=== PATIENT | female | born 1980 | race Caucasian/White ===

== ENCOUNTER → 2020-09-28 | Outpatient (CLI) | payer BC ==
[2020-09-28 09:07] LABS: EOS # 0.3 (0.04-0.40); EOS % 6.3 % (1.0-5.0); HEMATOCRIT 39.4 % (37.0-47.0); HEMOGLOBIN 12.2 g/dL (12.5-16.0); LYMPH# 1.5 (1.50-4.00); MEAN CELL VOLUME 85 fl (78-100); MEAN CORPUSCULAR HEMOGLOBIN 26 pg (27-31); MEAN CORPUSCULAR HGB CONC 31 g/dL (33-37); MONO # 0.5 (0.20-0.80); NEU # 2.9 (1.40-6.50); PLATELET COUNT 415 K/mm3 (130-400); RED BLOOD COUNT 4.63 M/mm3 (4.10-5.30); RED CELL DISTRIBUTION WIDTH 13.3 % (11.5-14.5); WHITE BLOOD COUNT 5.3 K/mm3 (4.8-10.8)
[2020-09-28 09:17] LABS: ALBUMIN 4.4 g/dL (3.5-5.0); POTASSIUM 4.5 mmol/L (3.5-5.1)
[2020-09-28 09:18] LABS: CALCIUM 9.4 mg/dL (8.3-10.5)
[2020-09-28 09:19] LABS: TOTAL PROTEIN 8.2 g/dL (6.4-8.3)
[2020-09-28 09:21] LABS: TOTAL BILIRUBIN 0.4 mg/dL (0.2-1.2)
[2020-09-28 23:48] LABS: T3 TOTAL 81 ng/dL (58-159)
[2020-09-29 15:25] LABS: ANA SCREEN with REFLEX Positive (Negative)
== END ==
LOC: LAB 08:39 → RAD 08:39
PROVIDERS: Physician Assistant
DX: Z13.29 Encounter for screening for other suspected endocrine disorder (principal); Z00.00 Encounter for general adult medical examination without abnormal findings; M47.812 Spondylosis without myelopathy or radiculopathy, cervical region; M48.02 Spinal stenosis, cervical region; E78.5 Hyperlipidemia, unspecified; R59.0 Localized enlarged lymph nodes; M25.50 Pain in unspecified joint; Z86.32 Personal history of gestational diabetes; R79.89 Other specified abnormal findings of blood chemistry

== ENCOUNTER → 2020-10-05 | Outpatient (CLI) | payer BC ==
[2020-10-05 10:26] LABS: URINE APPEARANCE HAZY; URINE BILIRUBIN NEGATIVE (NEGATIVE); URINE BLOOD NEGATIVE (NEGATIVE); URINE COLOR YELLOW; URINE GLUCOSE NEGATIVE (NEGATIVE); URINE KETONE NEGATIVE (NEGATIVE); URINE LEUKOCYTE ESTERASE NEGATIVE (NEGATIVE); URINE NITRATE NEGATIVE (NEGATIVE); URINE PROTEIN(semi-quant) NEGATIVE (NEGATIVE); URINE UROBILINOGEN NORMAL (NORMAL); URINE WBC 0-1 /hpf (0-3)
== END ==
LOC: LAB 09:12
PROVIDERS: Physician Assistant
DX: Z00.00 Encounter for general adult medical examination without abnormal findings (principal); E78.5 Hyperlipidemia, unspecified; R59.1 Generalized enlarged lymph nodes

== ENCOUNTER → 2021-01-23 | Outpatient (CLI) | payer BC ==
[2021-01-23 23:50] LABS: FOLLICLE STIMULATING HORMONE 6.5 mIU/mL (()); LUTENIZING HORMONE 3.2 mIU/mL (()); PROGESTERONE 0.1 ng/mL (())
== END ==
LOC: LAB 16:23
PROVIDERS: Physician Assistant
DX: N92.6 Irregular menstruation, unspecified (principal); R79.89 Other specified abnormal findings of blood chemistry

== ENCOUNTER → 2021-10-11 | Outpatient (CLI) | payer BC ==
[2021-10-11 09:47] LABS: BASO # 0.03 K/mm3 (0.02-0.10); EOS # 0.16 K/mm3 (0.04-0.40); EOS % 2.7 % (1.0-5.0); HEMATOCRIT 37.1 % (37.0-47.0); HEMOGLOBIN 11.3 g/dL (12.5-16.0); LYMPH# 1.55 K/mm3 (1.50-4.00); MEAN CELL VOLUME 75 fl (78-100); MEAN CORPUSCULAR HEMOGLOBIN 23 pg (27-31); MEAN CORPUSCULAR HGB CONC 31 g/dL (33-37); MEAN PLATELET VOLUME 8.9 fl (7.4-10.4); MONO # 0.49 K/mm3 (0.20-0.80); NEU # 3.78 K/mm3 (1.40-6.50); PLATELET COUNT 486 K/mm3 (130-400); RED BLOOD COUNT 4.94 M/mm3 (4.10-5.30)
[2021-10-11 09:50] LABS: ALBUMIN 4.2 g/dL (3.5-5.0)
[2021-10-11 09:51] LABS: CALCIUM 9.5 mg/dL (8.3-10.5)
[2021-10-11 09:52] LABS: TOTAL PROTEIN 7.7 g/dL (6.4-8.3)
[2021-10-11 09:54] LABS: TOTAL BILIRUBIN 0.6 mg/dL (0.2-1.2)
== END ==
LOC: RAD 09:01 → LAB 09:01
PROVIDERS: Physician Assistant
DX: Z00.00 Encounter for general adult medical examination without abnormal findings (principal); R35.0 Frequency of micturition; Z13.220 Encounter for screening for lipoid disorders; Z12.39 Encounter for other screening for malignant neoplasm of breast; Z13.29 Encounter for screening for other suspected endocrine disorder; R79.89 Other specified abnormal findings of blood chemistry; M35.00 Sjogren syndrome, unspecified; N92.6 Irregular menstruation, unspecified; Z86.32 Personal history of gestational diabetes; K90.9 Intestinal malabsorption, unspecified; J45.909 Unspecified asthma, uncomplicated; Z12.11 Encounter for screening for malignant neoplasm of colon; M95.3 Acquired deformity of neck; R59.1 Generalized enlarged lymph nodes

== ENCOUNTER → 2022-10-15 | Outpatient (CLI) | payer BC ==
[2022-10-15 09:05] LABS: BASO # 0.03 K/mm3 (0.02-0.10); EOS # 0.39 K/mm3 (0.04-0.40); EOS % 6.2 % (1.0-5.0); HEMATOCRIT 37.5 % (37.0-47.0); HEMOGLOBIN 11.6 g/dL (12.5-16.0); MEAN CELL VOLUME 82 fl (78-100); MEAN CORPUSCULAR HEMOGLOBIN 25 pg (27-31); MEAN CORPUSCULAR HGB CONC 31 g/dL (33-37); MEAN PLATELET VOLUME 8.3 fl (7.4-10.4); MONO # 0.56 K/mm3 (0.20-0.80); NEU # 3.68 K/mm3 (1.40-6.50); PLATELET COUNT 414 K/mm3 (130-400); RED BLOOD COUNT 4.59 M/mm3 (4.10-5.30); RED CELL DISTRIBUTION WIDTH 13.8 % (11.5-14.5); WHITE BLOOD COUNT 6.3 K/mm3 (4.8-10.8)
[2022-10-15 09:09] LABS: ALBUMIN 4.1 g/dL (3.5-5.0)
[2022-10-15 09:10] LABS: CALCIUM 9.4 mg/dL (8.3-10.5)
[2022-10-15 09:12] LABS: TOTAL PROTEIN 7.4 g/dL (6.4-8.3)
[2022-10-15 09:13] LABS: TOTAL BILIRUBIN 0.4 mg/dL (0.2-1.2)
[2022-10-15 09:40] LABS: URINE APPEARANCE CLEAR; URINE BILIRUBIN NEGATIVE (NEGATIVE); URINE BLOOD TRACE (NEGATIVE); URINE COLOR YELLOW; URINE GLUCOSE NEGATIVE (NEGATIVE); URINE KETONE NEGATIVE (NEGATIVE); URINE LEUKOCYTE ESTERASE TRACE (NEGATIVE); URINE NITRATE NEGATIVE (NEGATIVE); URINE PROTEIN(semi-quant) TRACE (NEGATIVE); URINE UROBILINOGEN NORMAL (NORMAL)
[2022-10-15 09:41] LABS: URINE MUCUS PRESENT (NOT PRESENT)
== END ==
LOC: LAB 08:41
PROVIDERS: Physician Assistant
DX: Z00.00 Encounter for general adult medical examination without abnormal findings (principal); Z13.220 Encounter for screening for lipoid disorders; Z13.29 Encounter for screening for other suspected endocrine disorder; Z12.11 Encounter for screening for malignant neoplasm of colon; E78.5 Hyperlipidemia, unspecified; J45.909 Unspecified asthma, uncomplicated; M54.9 Dorsalgia, unspecified; N92.6 Irregular menstruation, unspecified; M35.00 Sjogren syndrome, unspecified; Z13.1 Encounter for screening for diabetes mellitus; K90.9 Intestinal malabsorption, unspecified; E55.9 Vitamin D deficiency, unspecified; R35.0 Frequency of micturition; R79.89 Other specified abnormal findings of blood chemistry; R59.1 Generalized enlarged lymph nodes; Z28.20 Immunization not carried out because of patient decision for unspecified reason; Z86.32 Personal history of gestational diabetes

== ENCOUNTER → 2022-10-21 | Outpatient (CLI) | payer BC | LOC: LAB 11:18 | DX: Z00.00 Encounter for general adult medical examination without abnormal findings (principal); Z12.11 Encounter for screening for malignant neoplasm of colon; Z13.1 Encounter for screening for diabetes mellitus; Z13.220 Encounter for screening for lipoid disorders; Z13.29 Encounter for screening for other suspected endocrine disorder; J45.909 Unspecified asthma, uncomplicated; M54.9 Dorsalgia, unspecified; N92.6 Irregular menstruation, unspecified; R79.89 Other specified abnormal findings of blood chemistry; M35.00 Sjogren syndrome, unspecified; K90.9 Intestinal malabsorption, unspecified; E55.9 Vitamin D deficiency, unspecified; R35.0 Frequency of micturition; Z28.20 Immunization not carried out because of patient decision for unspecified reason ==